=== PATIENT | female | born 1955 | race Caucasian/White ===

== ENCOUNTER 2017-02-14 13:04 | Inpatient (IN) | payer OTHER ==
[2017-02-14 13:28] VITALS: BP 166/72; PULSE 96; RESP 20; TEMP 98.1; O2SAT 97
[2017-02-14 15:20] LABS: BILIRUBIN, URINE NEG (NEG); BLOOD, URINE NEG (NEG); GLUCOSE,URINE NEG (NEG); KETONE, URINE 15 mg/dL (NEG); NITRITE,URINE NEG (NEG); PH, URINE 5.5 (5.0-8.5); URINE LEUKOCYTE ESTERASE SMALL (NEG)
[2017-02-14 15:28] LABS: URINE COLOR YELLOW (YELLW/STRAW)
[2017-02-14 15:29] LABS: SQUAMOUS EPITHELIAL CELL URINE 0-5 /hpf (0-5); WHITE BLOOD CELL CLUMPS FEW
[2017-02-14 16:10] VITALS: BP 149/72; PULSE 92; RESP 18; O2SAT 100
[2017-02-14] MEDS ORDERED: METR-1 PO (16:17)
[2017-02-14] MEDS ORDERED: CIPR250T52 PO (16:17)
[2017-02-14] MEDS ORDERED: DICY20TA10 PO (16:18)
[2017-02-14] MEDS ORDERED: SODIUM CHLOR 0.9% 1000 ML INJ 1,000 ML IV SCH (16:19)
--- NOTE | 2017-02-14 16:28 | PD ---
HPI Chief Complaint: Abdominal Pain Time Seen by Provider: 16:06 Travel History International Travel<30 days: No Contact w/Intl Traveler<30days: No Traveled to known affect area: No History of Present Illness HPI The patient was seen and examined in the presence of the nurse. She complains of abdominal pain. Duration is 2 weeks. She has nausea. She has been eating. She has decreased appetite though. She denies constipation. She had a bowel movement that was yesterday normal. She had an outpatient x-ray this morning that showed the possibility of partial obstruction. She was then referred to the emergency room. Symptoms severity is moderate. She reports that she was hospitalized at [facility] this summer with a bowel obstruction which resolved without operative intervention. [facility] Past Medical History Medical History: Denies Significant Hx Diminished Hearing: No Immunizations Current: Yes Tetanus Vaccination: > 5 Years Influenza Vaccination: No ?: Not Menopausal: Yes Past Surgical History Surgical History: No Previous Surgery Social History Alcohol Use: No Tobacco Use: Yes (02/06) Substance Use: No Allergies-Medications (Allergen,Severity, Reaction): Coded Allergies: Sulfa (Sulfonamide Antibiotics) (Verified Allergy, Unknown, N/V , 02/14/17) Reported Meds & Prescriptions Reported Meds & Active Scripts Active Reported Dicyclomine (Dicyclomine HCl) 20 Mg Tab 20 Mg PO QID Cipro (Ciprofloxacin HCl) 250 Mg Tab 750 Mg PO BID Flagyl (Metronidazole) 500 Mg Tab 500 Mg PO TID Review of Systems General / Constitutional: No: Fever Eyes: No: Visual changes HENT: No: Headaches Cardiovascular: No: Chest Pain or Discomfort Respiratory: No: Shortness of Breath Gastrointestinal: Positive: Nausea, Abdominal Pain Genitourinary: No: Dysuria Musculoskeletal: No: Pain Skin: No Rash Neurologic: No: Weakness Psychiatric: No: Depression Endocrine: No: Polydipsia Hematologic/Lymphatic: No: Easy Bruising Physical Exam Narrative GENERAL: Well-nourished, well-developed patient in no apparent distress. SKIN: Focused skin assessment reveals no rash and nodules. Skin is Warm and dry. HEAD: Atraumatic. Normocephalic. EYES: Pupils equal and round. No scleral icterus. No injection or drainage. ENT: No nasal bleeding or discharge. Mucous membranes pink and moist. NECK: Trachea midline. No JVD. CARDIOVASCULAR: Regular rate and rhythm. No murmur appreciated. RESPIRATORY: No accessory muscle use. Clear to auscultation. Breath sounds equal bilaterally. GASTROINTESTINAL: Abdomen soft, no significant tenderness or rebound or guarding , nondistended. Hepatic and splenic margins not palpable. Does have some prominent bowel sounds, nothing high-pitched MUSCULOSKELETAL: No obvious deformities. No clubbing. No cyanosis. No edema. NEUROLOGICAL: Awake and alert. No obvious cranial nerve deficits. Motor grossly within normal limits. Normal speech. PSYCHIATRIC: Appropriate mood and affect; insight and judgment normal. Data Data Last Documented VS Vital Signs Date Time Temp Pulse Resp B/P (MAP) Pulse Ox O2 Delivery O2 Flow Rate FiO2 02/14/17 18:43 82 18 145/77 (99) 99 Room Air 02/14/17 13:28 98.1 Orders Orders Urinalysis - C+S If Indicated (02/14/17 13:24) Urine Culture (02/14/17 14:49) Complete Blood Count With Diff (02/14/17 16:19) Comprehensive Metabolic Panel (02/14/17 16:19) Lipase (02/14/17 16:19) Prothrombin Time / Inr (Pt) (02/14/17 16:19) Act Partial Throm Time (Ptt) (02/14/17 16:19) Ct Abd/Pel W Iv Contrast(Rout) (02/14/17 16:19) Iv Access Insert/Monitor (02/14/17 16:19) NPO (02/14/17 16:19) Ondansetron Inj (Zofran Inj) (02/14/17 16:30) Sodium Chlor 0.9% 1000 Ml Inj (Ns 1000 M (02/14/17 16:19) Sodium Chloride 0.9% Flush (Ns Flush) (02/14/17 16:30) Oral Contrast - Adult (02/14/17 16:24) Diatrizoate Liq ( Gastroview Liq) (02/14/17 16:30) Iohexol 350 Inj (Omnipaque 350 Inj) (02/14/17 17:58) Labs Laboratory Tests Test 02/14/17 14:49 02/14/17 16:25 Urine Color YELLOW Urine Turbidity CLEAR Urine pH 5.5 Urine Specific [place] 1.008 Urine Protein NEG mg/dL Urine Glucose (UA) NEG mg/dL Urine Ketones 15 mg/dL Urine Occult Blood NEG Urine Nitrite NEG Urine Bilirubin NEG Urine Leukocyte Esterase SMALL Urine WBC 9-14 /hpf Urine WBC Clumps FEW Urine Squamous Epithelial Cells 0-5 /hpf Microscopic Urinalysis Comment CULTURE INDICATED White Blood Count 14.4 TH/MM3 Red Blood Count 3.83 MIL/MM3 Hemoglobin 10.7 GM/DL Hematocrit 32.7 % Mean Corpuscular Volume 85.3 FL Mean Corpuscular Hemoglobin 27.9 PG Mean Corpuscular Hemoglobin Concent 32.7 % Red Cell Distribution Width 15.4 % Platelet Count 534 TH/MM3 Mean Platelet Volume 7.5 FL Neutrophils (%) (Auto) 82.4 % Lymphocytes (%) (Auto) 10.9 % Monocytes (%) (Auto) 6.3 % Eosinophils (%) (Auto) 0.3 % Basophils (%) (Auto) 0.1 % Neutrophils # (Auto) 11.9 TH/MM3 Lymphocytes # (Auto) 1.6 TH/MM3 Monocytes # (Auto) 0.9 TH/MM3 Eosinophils # (Auto) 0.0 TH/MM3 Basophils # (Auto) 0.0 TH/MM3 CBC Comment DIFF FINAL Differential Comment Prothrombin Time 11.4 SEC Prothromb Time International Ratio 1.1 RATIO Activated Partial Thromboplast Time 30.9 SEC Blood Urea Nitrogen 9 MG/DL Creatinine 0.64 MG/DL Random Glucose 91 MG/DL Total Protein 7.5 GM/DL Albumin 2.7 GM/DL Calcium Level 9.0 MG/DL Alkaline Phosphatase 97 U/L Aspartate Amino Transf (AST/SGOT) 8 U/L Alanine Aminotransferase (ALT/SGPT) 10 U/L Total Bilirubin 0.4 MG/DL Sodium Level 130 MEQ/L Potassium Level 4.2 MEQ/L Chloride Level 94 MEQ/L Carbon Dioxide Level 28.0 MEQ/L Anion Gap 8 MEQ/L Estimat Glomerular Filtration Rate 95 ML/MIN Lipase 136 U/L MDM Medical Decision Making Medical Screen Exam Complete: Yes Emergency Medical Condition: Yes Medical Record Reviewed: Yes Differential Diagnosis Obstruction, ileus, colitis Narrative Course I have reviewed the patient's electronic medical record. Reviewed her outpatient x-ray from this morning that show the possibility of partial bowel obstruction IV placed CBC shows some leukocytosis of 14,000 metabolic profile shows hyponatremia of 1:30 LFT's are normal lipase is normal Coagulation studies are normal Urinalysis is normal CT of abdomen and pelvis with IV contrast shows diverticulitis with suspected abscesses. The largest is 6 x 6 cm. Given the diverticulitis with abscesses not amenable to percutaneous drainage I placed a call to Dr. Priscilla Ortiz for colorectal admission. I'm going to initiate some IV antibiotics. I gave her IV Zofran and a dose of morphine Patient will be admitted for IV antibiotics and consideration of surgical drainage Diagnosis Primary Impression: Diverticulitis of large intestine with abscess Qualified Codes: K57.20 - Diverticulitis of large intestine with perforation and abscess without bleeding Admitting Information Admitting Physician Requests: Admit Moshe Bowser MD Feb 14, 2017 16:28
[2017-02-14] MEDS ORDERED: DIATRIZOATE MEGLUM/DIATRIZOATE SOD 9 ML CUP ONE (16:30)
[2017-02-14] MEDS ORDERED: SODIUM CHLORIDE 0.9% FLUSH 10 ML FLUSH IV FLUSH PRN (16:30)
[2017-02-14] MEDS ORDERED: ONDANSETRON HCL 4 MG/2 ML VIAL IVP ONE (16:30)
[2017-02-14 16:39] LABS: AUTOMATED NEUTROPHIL # 11.9 TH/MM3 (1.8-7.7); BASOPHIL % 0.1 % (0.0-2.0); EOSINOPHIL % 0.3 % (0.0-4.0); HEMATOCRIT 32.7 % (35.0-46.0); HEMOGLOBIN 10.7 GM/DL (11.6-15.3); LYMPH % 10.9 % (9.0-44.0); LYMPHOCYTE # 1.6 TH/MM3 (1.0-4.8); MEAN CELL VOLUME 85.3 FL (80.0-100.0); MEAN CORPUSCULAR HEMOGLOBIN 27.9 PG (27.0-34.0); MEAN CORPUSCULAR HGB CONC 32.7 % (32.0-36.0); MEAN PLATELET VOLUME 7.5 FL (7.0-11.0); MONO % 6.3 % (0.0-8.0); MONOCYTE # 0.9 TH/MM3 (0-0.9); NEUT % 82.4 % (16.0-70.0); PLATELET COUNT 534 TH/MM3 (150-450); RED BLOOD COUNT 3.83 MIL/MM3 (4.00-5.30); RED CELL DISTRIBUTION WIDTH 15.4 % (11.6-17.2); WHITE BLOOD COUNT 14.4 TH/MM3 (4.0-11.0)
[2017-02-14 16:47] LABS: CHLORIDE 94 MEQ/L (98-107); SODIUM (NA) 130 MEQ/L (136-145)
[2017-02-14 16:51] LABS: ALBUMIN 2.7 GM/DL (3.4-5.0); INTERNATIONAL NORMALIZED RATIO 1.1 RATIO; LIPASE 136 U/L (73-393); PROTHROMBIN TIME - PATIENT 11.4 SEC (9.8-11.6)
[2017-02-14 16:52] LABS: BLOOD UREA NITROGEN 9 MG/DL (7-18); GLUCOSE,RANDOM 91 MG/DL (74-106)
[2017-02-14 16:55] LABS: ALT (GPT) 10 U/L (10-53); AST (GOT) 8 U/L (15-37); CREATININE 0.64 MG/DL (0.50-1.00); GLOMERULAR FILTRATION RATE 95 ML/MIN (>89)
[2017-02-14 16:56] LABS: TOTAL BILIRUBIN ADULT 0.4 MG/DL (0.2-1.0); TOTAL PROTEIN 7.5 GM/DL (6.4-8.2)
[2017-02-14 16:57] LABS: ALKALINE PHOSPHATASE 97 U/L (45-117)
[2017-02-14] MEDS ORDERED: IOHEXOL 350 MG/ML 10 ML VIAL (for RAD DIAG) IVCONTRAST ONE (17:58)
--- NOTE | 2017-02-14 18:35 | RADRPT ---
EXAM DATE/TIME: 02/14/2017 17:52 [facility] COMPARISON: No previous studies available for comparison. INDICATIONS : Abdominal pain. IV CONTRAST: 100 cc Omnipaque 350 (iohexol) IV ORAL CONTRAST: Prescribed oral contrast ingested. RADIATION DOSE: 4.44 CTDIvol (mGy) MEDICAL HISTORY : None SURGICAL HISTORY : None. ENCOUNTER: Initial ACUITY: 2 weeks PAIN SCALE: 5/10 LOCATION: Abdomen TECHNIQUE: Volumetric scanning of the abdomen and pelvis was performed. Using automated exposure control and adjustment of the mA and/or kV according to patient size, radiation dose was kept as low as reasonably achievable to obtain optimal diagnostic quality images. DICOM format image data is av ailable electronically for review and comparison. FINDINGS: CT scan of the abdomen and pelvis was performed with IV and oral contrast. The liver, spleen, pancreas, gallbladder, and kidneys are unremarkable. Within the pelvis there is a large hypo dense collection with numerous small extensions measuring at least 6.2 x 5.7 cm across. It has fluid density with a number of projections suspiciosus for a multilobulated abscess. There is an addition al abscess posterior to the mildly inflamed sigmoid colon. Although there are some areas of fluid-fi lled colon in the adjacent soft tissues I am concerned that the fluid density is actually a multilocu lated abscess. I believe I can see a normal air-filled appendix inferior and anterior to the abscess. The sigmoid colon does appear to be quite thick-walled on the reformatted images. CONCLUSION: Large multilobulated hypodense collections scattered throughout the pelvis concerning in appearance for a possible abscess. The largest central collection is 5.7 x 6.2 cm across. It is quite high in the pelvis and surrounded by bowel. I do not believe it is amenable to a percutaneous drainage. There is a smaller collection posterior to the sigmoid colon and the left posterior pelvi s. I am concerned it represents a significant diverticular abscess. Ángel Kim MD on February 14, 2017 at 18:16 Board Certified Radiologist. This report was verified electronically.
[2017-02-14 18:43] VITALS: BP 145/77; PULSE 82; RESP 18; O2SAT 99
[2017-02-14] MEDS ORDERED: MORPHINE SULFATE 2 MG/ML INJ IV PUSH ONE ×2 (19:15)
[2017-02-14] MEDS ORDERED: PIPERACIL-TAZO 3.375 GM PREMIX 50 ML IV ONE (19:15)
[2017-02-14] MEDS ORDERED: SODIUM CHLOR 0.9% 1000 ML INJ 1,000 ML IV ONE (19:30)
[2017-02-14] MEDS ORDERED: ONDANSETRON HCL 4 MG/2 ML VIAL IVP PRN (19:30)
[2017-02-14 19:54] VITALS: BP 127/77; PULSE 79; RESP 16; O2SAT 97
[2017-02-14] MEDS: MORPHINE SULFATE 2 MG/ML INJ IV PUSH PRN ×2 (21:07→23:44)
[2017-02-14 22:06] VITALS: BP 120/68
[2017-02-14] MEDS: SODIUM CHLOR 0.9% 1000 ML INJ 1,000 ML IV SCH (23:36)
[2017-02-14] MEDS: PANTOPRAZOLE SODIUM 40 MG VIAL IV PUSH SCH (23:37)
[2017-02-15] VITALS: BP 152/70; PULSE 72; RESP 16; TEMP 98.6; O2SAT 93
[2017-02-15] MEDS: MORPHINE SULFATE 2 MG/ML INJ IV PUSH PRN ×5 (02:57→21:55)
[2017-02-15] MEDS: PIPERACIL-TAZO 3.375 GM PREMIX 50 ML IV SCH ×4 (02:57→21:53)
[2017-02-15] MEDS: SODIUM CHLOR 0.9% 1000 ML INJ 1,000 ML IV SCH ×2 (05:11→17:10)
[2017-02-15 08:00] VITALS: BP 128/69; PULSE 66; RESP 17; TEMP 97.4; O2SAT 94
[2017-02-15 12:00] VITALS: BP 129/69; PULSE 62; RESP 17; TEMP 95.8; O2SAT 96
[2017-02-15] MEDS ORDERED: MIDAZOLAM HCL 2 MG/2 ML VIAL ONE (14:39)
--- NOTE | 2017-02-15 15:23 | PD.RAD ---
Post CT Procedure Prog Note Pre Procedure Diagnosis: (1) Diverticulitis of large intestine with abscess Post Procedure Diagnosis: Procedure Date: Feb 15, 2017 Supervising Radiologist: Luc Yip Proceduralist/Assist: catalina mello Estimated blood loss: none Anesthesia: Conscious Sedation Plan of Activity Patient to Unit: ROPU Patient Condition: Good See PACS Report for procedural detail/treatment Luc Yip MD Feb 15, 2017 15:22
--- NOTE | 2017-02-15 16:20 | RADRPT ---
EXAM DATE/TIME: 02/15/2017 14:46 [facility] COMPARISON: No previous studies available for comparison. INDICATIONS : Pelvic fluid SEDATION TIME: 20 minutes MEDICATION(S): 1.) 3.5 mg midazolam (Versed) IV 2.) 175 mcg fentanyl (Sublimaze) IV DEVICE(S): 1.) 10 Fr Kamran Total volume of 30 cc of cloudy, green fluid was removed. Fluid was sent for laboratory ordered studies. MEDICAL HISTORY : Diverticullitis. SURGICAL HISTORY : Abscess drain ENCOUNTER: Initial ACUITY: 1 day PAIN SCORE: 5/10 LOCATION: Abdomen PROCEDURE: 1.) Conscious sedation with continuous EKG and oximetry monitoring. PROCEDURE : 1. CT guided drainage of the pelvic abscess 2. Conscious sedation with continuous EKG and oximetry monitoring. The risks, benefits and alternatives to the procedure were explained and verbal and written consent w as obtained. Using automated exposure control and adjustment of the mA and/or kV according to patient size, radiation dose was kept as low as reasonably achievable to obtain optimal diagnostic quality i mages. The site was prepped in sterile fashion. Full sterile technique was used, including cap, ma sk, sterile gloves and gown and a large sterile sheet. Hand hygiene and 2% chlorhexidine and/or beta dine/alcohol prep was utilized per protocol for cutaneous antisepsis. The skin and subcutaneous tiss ues were infiltrated with local anesthetic solution. DICOM format image data is available electronic ally for review and comparison. Using CT guidance the prescribed site was localized. Drainage was performed using the prescribed cat heter The patient tolerated the procedure well and there were no complications. Conscious sedation was per formed with the prescribed dosages and duration as above in the presence of an independent trained ra diology nurse to assist in the monitoring of the patient. EKG and oximetry remained stable throughou t the procedure. The patient tolerated the procedure well and there were no complications. The patient was sent to pos t anesthesia recovery in stable condition. CONCLUSION: Uncomplicated CT guided drainage pelvic abscess. Luc Yip MD on February 15, 2017 at 16:17 Board Certified Radiologist. This report was verified electronically.
--- NOTE | 2017-02-15 17:04 | MH ---
cc: PITO BOWLING M.D. DATE OF ADMISSION: 02/14/2017 REASON FOR ADMISSION Diverticulitis with multiple pelvic abscesses. HISTORY OF PRESENT ILLNESS Ms. Adams is a 61-year-old female who been treated before for diverticulitis. Last was several months ago at [facility] for abscesses which required percutaneous drainage. She says she up better after the drainage was discharged home on oral antibiotics. Over the last several months she has had several episodes of recurrent attacks always treated with oral antibiotics as an outpatient. Bowel movements have remained fairly good a little bit loose but not really to the point of diarrhea. Denies any nausea or vomiting. No significant abdominal pain or distension. The patient began having about 2 weeks now of increasing nausea and abdominal distension. She had increased amounts of pain in the lower abdomen and was not restarted back on antibiotics. Outpatient x-rays showed an ileus picture with multiple loops with distended small bowel. A CAT scan was done emergency room showing a large pelvic abscess with several adjacent abscesses consistent with recurrence of her perforated diverticulitis. She actually denies any fever. No shaking chills or rigors. Denies any significant rectal bleeding or melena. Appetite has been good and she does not think she has lost major amount of weight. PAST MEDICAL HISTORY No previous surgeries. MEDICATIONS Recent antibiotics. ALLERGIES SULFA. SOCIAL HISTORY: The patient denies alcohol abuse. Has been smoking about half pack a cigarettes a day. FAMILY HISTORY: No family history of colorectal cancer. PHYSICAL EXAMINATION: IN GENERAL: Pertinent physical very pleasant thin female in no acute distress. HEAD, EYES, EARS, NOSE, AND THROAT: Unremarkable for pink dry membranes, nonicteric sclera. NECK: The neck was supple without gross adenopathy. CHEST: Relatively clear, symmetrical expanding. HEART: The heart had a regular rhythm. ABDOMEN: The abdomen was fairly large and more rounded than expected quite a bit of tympany and mild tenderness in the lower abdomen. No rebound or guarding or any real masses. EXTREMITIES: Extremities show no cyanosis or clubbing and minimal trace pedal edema. LABORATORY STUDIES White count was 14.4, hemoglobin 10.7, platelet count 534,000. Electrolytes pretty unremarkable with a normal BUN and creatinine. Normal liver functions CT scan reviewed showing a large abscess in the pelvis with several small loculated abscesses. FINDINGS Sigmoid swelling consistent with diverticulitis, were reviewed at length with the patient and with radiology. The radiologist feels he could probably try to get a catheter into the abscess for percutaneous drainage, again even though it might be somewhat difficult due to its location. The risk, benefits, alternatives were discussed at great length with the patient and she is feeling better after even 24 hours of antibiotics, so we will proceed with abscess drainage. Continue oral nutrition and hopefully avoid more emergent surgery. If we can get this to resolve with conservative approach a interval colectomy would be warranted due to the recurrent nature of her disease. Otherwise resection with a without diversion with probably be indicated. MD OREN Sims/makenna /3:50 PM /4:15 PM
[2017-02-15 17:15] LABS: AUTOMATED NEUTROPHIL # 9.2 TH/MM3 (1.8-7.7); BASOPHIL # 0.1 TH/MM3 (0-0.2); BASOPHIL % 0.9 % (0.0-2.0); EOSINOPHIL % 0.2 % (0.0-4.0); HEMATOCRIT 31.7 % (35.0-46.0); HEMOGLOBIN 10.3 GM/DL (11.6-15.3); LYMPH % 12.3 % (9.0-44.0); LYMPHOCYTE # 1.4 TH/MM3 (1.0-4.8); MEAN CELL VOLUME 88.9 FL (80.0-100.0); MEAN CORPUSCULAR HEMOGLOBIN 28.9 PG (27.0-34.0); MEAN CORPUSCULAR HGB CONC 32.5 % (32.0-36.0); MEAN PLATELET VOLUME 7.9 FL (7.0-11.0); MONO % 6.9 % (0.0-8.0); MONOCYTE # 0.8 TH/MM3 (0-0.9); NEUT % 79.7 % (16.0-70.0); PLATELET COUNT 495 TH/MM3 (150-450); RED BLOOD COUNT 3.57 MIL/MM3 (4.00-5.30); RED CELL DISTRIBUTION WIDTH 16.7 % (11.6-17.2); WHITE BLOOD COUNT 11.6 TH/MM3 (4.0-11.0)
[2017-02-15 17:39] LABS: BICARBONATE 21.1 MEQ/L (21.0-32.0); CALCIUM 8.3 MG/DL (8.5-10.1); CREATININE 0.72 MG/DL (0.50-1.00)
[2017-02-15 20:00] VITALS: BP 167/74; PULSE 58; RESP 20; TEMP 97.2; O2SAT 99
[2017-02-15] MEDS ORDERED: oxyCODONE/ACETAMINOPHEN 5 MG/325 MG TAB PO PRN (20:00)
[2017-02-15] MEDS: PANTOPRAZOLE SODIUM 40 MG VIAL IV PUSH SCH (21:55)
[2017-02-16] VITALS: BP 143/68; PULSE 63; RESP 20; TEMP 97.7; O2SAT 96
[2017-02-16] MEDS: PIPERACIL-TAZO 3.375 GM PREMIX 50 ML IV SCH ×4 (01:38→20:03)
[2017-02-16 04:00] VITALS: BP 147/70; PULSE 65; RESP 18; TEMP 98; O2SAT 95
[2017-02-16] MEDS: SODIUM CHLOR 0.9% 1000 ML INJ 1,000 ML IV SCH ×3 (04:15→19:00)
[2017-02-16] MEDS: MORPHINE SULFATE 2 MG/ML INJ IV PUSH PRN ×3 (04:37→11:35)
[2017-02-16] MEDS ORDERED: FLOR250C PO (07:49)
[2017-02-16 08:00] VITALS: BP 167/79; PULSE 56; RESP 18; TEMP 97.5; O2SAT 100
[2017-02-16] MEDS ORDERED: ACETAMINOPHEN/HYDROcodone 325 MG/5 MG TAB PO PRN (11:30)
[2017-02-16 12:00] VITALS: BP 150/72; PULSE 63; RESP 17; TEMP 98.1; O2SAT 94
[2017-02-16] MEDS: IBUPROFEN 600 MG TAB PO PRN (15:18)
[2017-02-16 16:00] VITALS: BP 159/79; PULSE 62; RESP 17; TEMP 98.3; O2SAT 96
[2017-02-16 20:00] VITALS: BP 156/71; PULSE 64; RESP 16; TEMP 96.5; O2SAT 96
[2017-02-16] MEDS: PANTOPRAZOLE SODIUM 40 MG VIAL IV PUSH SCH (20:03)
--- NOTE | 2017-02-16 22:23 | HHI.PR ---
Subjective Remarks C/R Surg afebrile, VSS UO good +flatus Objective - Vital Signs Date Time Temp Pulse Resp B/P (MAP) Pulse Ox O2 Delivery O2 Flow Rate FiO2 02/16/17 20:00 96.5 64 16 156/71 (99) 96 02/14/17 19:54 Room Air Result Diagram: 02/15/17 1644 02/15/17 1641 Objective Remarks PE alert Abd - softer, still tympany A/P Assessment and Plan Imp: better after drainage abscess OOB poss DC oif ciara PO, elective resection Jonas Haider MD Feb 16, 2017 22:23
[2017-02-17] VITALS: BP 157/76; PULSE 85; RESP 16; TEMP 98.5; O2SAT 98
[2017-02-17] MEDS: PIPERACIL-TAZO 3.375 GM PREMIX 50 ML IV SCH ×2 (02:00→08:51)
[2017-02-17 08:00] VITALS: BP 183/84; PULSE 78; RESP 18; TEMP 98.4; O2SAT 98
[2017-02-17] MEDS: IBUPROFEN 600 MG TAB PO PRN (08:51)
--- NOTE | 2017-02-17 09:09 | HHI.PR ---
Subjective Remarks C/R Surg afebrile, VSS UO good +flatus/BM Objective - Vital Signs Date Time Temp Pulse Resp B/P (MAP) Pulse Ox O2 Delivery O2 Flow Rate FiO2 02/17/17 08:00 98.4 78 18 183/84 (117) 98 02/14/17 19:54 Room Air Result Diagram: 02/15/17 1644 02/15/17 1641 Objective Remarks PE alert Abd - softer, still tympany A/P Assessment and Plan Imp: better after drainage abscess OOB poss DC oif ciara PO, elective resection rto 1 - 2 weeks Jonas Haider MD Feb 17, 2017 09:09
[2017-02-17] MEDS ORDERED: CEPHALEXIN MONOHYDRATE 500 MG CAP PO SCH (09:30)
[2017-02-17] MEDS ORDERED: CEPH500C PO (09:45)
== END 2017-02-17 11:35 | disposition home or self-care (01) | DRG 392 ==
LOC: PHED 13:04 → PHEDA 19:19 → N07B 22:33
PROVIDERS: ADMIT Colon & Rectal Surgery; ATTEND Colon & Rectal Surgery
PROC: 0W9J3ZZ Drainage of Pelvic Cavity, Percutaneous Approach (ICD-10-PCS; principal; 2017-02-15)
DX: K57.20 Diverticulitis of large intestine with perforation and abscess without bleeding (principal); E87.1 Hypo-osmolality and hyponatremia; F17.210 Nicotine dependence, cigarettes, uncomplicated; R63.0 Anorexia; N73.9 Female pelvic inflammatory disease, unspecified; D72.829 Elevated white blood cell count, unspecified
CPT/HCPCS: 49406; 74177; 80048; 80053; 81001; 82948; 83690; 85025; 85610; 85730; 87070; 87086; 87205; 96361; 96374; 96375; C1729; C1769; C9113; J2250; J2270; J2405; J2543; J3010; J7030; Q9963; Q9967

== ENCOUNTER → 2017-02-14 | Outpatient (CLI) | payer OTHER ==
[~2017-02-14] MED LIST: CEPH500C PO; CIPR250T52 PO; DICY20TA10 PO; FLOR250C PO; LIDOCAINE HCL 1% 20 ML VIAL ONE; METR-1 PO
--- NOTE | 2017-02-14 11:44 | RADRPT ---
EXAM DATE/TIME: 02/14/2017 11:27 [facility] COMPARISON: No previous studies available for comparison. INDICATIONS : Abdomen distension. MEDICAL HISTORY : Diverticulitis. SURGICAL HISTORY : None. ENCOUNTER: Initial ACUITY: 1 day PAIN SCORE: 5/10 LOCATION: Abdomen. FINDINGS: Supine and upright views of the abdomen were performed. There are some mildly dilated small bowel loo ps throughout the abdomen. Minimal air in the rectum. No air fluid levels are seen. No abnormal mas ses, calcifications, or organomegaly is seen. The visualized lower lungs are clear. No evidence of free intraperitoneal gas. The osseous structures are unremarkable. CONCLUSION: Multiple dilated small bowel loops which can be seen with partial obstruction. Luc Yip MD on February 14, 2017 at 11:41 Board Certified Radiologist. This report was verified electronically.
== END ==
LOC: HRAD 11:04
DX: R14.0 Abdominal distension (gaseous) (principal); Z87.19 Personal history of other diseases of the digestive system
CPT/HCPCS: 74019

== ENCOUNTER 2017-04-24 11:41 | Inpatient (IN) | payer OTHER ==
[~2017-04-24] VITALS: Ht 157.5 cm; Wt 48.0 kg
[~2017-04-24 11:41] MED LIST changes: -CIPR250T52 PO; -LIDOCAINE HCL 1% 20 ML VIAL ONE; -METR-1 PO
[2017-04-24] MEDS ORDERED: PROPOFOL 200 MG/20 ML AMP IV ONE (12:00)
[2017-04-24] MEDS ORDERED: ONDANSETRON HCL 4 MG/2 ML VIAL IV ONE (12:00)
[2017-04-24] MEDS ORDERED: LIDOCAINE HCL 1% PF 5 ML SYRINGE OTHER ONE (12:00)
[2017-04-24] MEDS ORDERED: PHENYLEPH/NS 1000 MCG/10 ML SYR IV ONE (12:00)
[2017-04-24] MEDS ORDERED: LABETALOL HCL 100 MG/20 ML VIAL IV ONE (12:00)
[2017-04-24] MEDS ORDERED: LACTATED RINGER'S 1000 ML INJ 2,000 ML IV ONE (12:00)
[2017-04-24] MEDS ORDERED: NORMOSOL R INJ 2,000 ML IV ONE (12:00)
[2017-04-24] MEDS ORDERED: NEOSTIGMINE 5 MG/5 ML SYRINGE IV PUSH ONE (12:00)
[2017-04-24] MEDS ORDERED: ROCURONIUM INJ 50 MG/5 ML SYRINGE IV PUSH ONE (12:00)
[2017-04-24] MEDS ORDERED: DEXAMETHASONE SOD PHOS 4 MG/ML VIAL IV ONE (12:00)
[2017-04-24] MEDS ORDERED: GLYCOPYRROLATE 1 MG/5 ML SYRINGE IV PUSH ONE (12:00)
[2017-04-24] MEDS ORDERED: CHLORHEXIDINE GLUCONATE 2 % 1 PACK (2 CLOTHS) TOPICAL PRN (12:30)
[2017-04-24] MEDS ORDERED: SODIUM CHLORID 0.9% 500 ML IV PRN (12:30)
[2017-04-24] MEDS ORDERED: METRONIDAZOLE 500 MG/100 ML ISONTONIC SOLN IV SCH (12:30)
[2017-04-24] MEDS ORDERED: LACTATED RINGER'S 1000 ML IV PRN (12:30)
[2017-04-24] MEDS ORDERED: METOPROLOL TARTRATE 25 MG TAB PO PRN (12:30)
[2017-04-24] MEDS ORDERED: DEXT 5%-NACL 0.9% 1000 ML INJ 1,000 ML IV SCH (12:30)
[2017-04-24] MEDS ORDERED: ceFAZolin 1,000 MG/NS 100 ML IV SCH ×2 (12:30)
[2017-04-24] MEDS ORDERED: POVIDONE IODINE 5% (ANTISEPSIS KIT) 4 APPLICATIONS EACH NARE PRN (12:30)
[2017-04-24] MEDS ORDERED: ALVIMOPAN 12 MG CAPSULE - On Call PO SCH (12:45)
--- NOTE | 2017-04-24 12:45 | RADRPT ---
EXAM DATE/TIME: 04/24/2017 12:21 [facility] COMPARISON: ABDOMEN FLAT & UPRIGHT, February 14, 2017, 11:27. INDICATIONS : Evaluate for pneumonia, pneumothorax, and communicable disease. Preop for intestinal resection. MEDICAL HISTORY : Diverticulitis. SURGICAL HISTORY : Abscess drainage. ENCOUNTER: Initial ACUITY: 1 day PAIN SCORE: 0/10 LOCATION: Bilateral chest FINDINGS: A single view of the chest demonstrates hyperinflation with left apical density. Lungs otherwise keyla r. Heart normal in size. Osseous structures are intact. CONCLUSION: 1. Left apical density could be first rib complex versus nodule. Outpatient CT chest recommended. 2. No evidence for pneumonia. Luc Yip MD on April 24, 2017 at 12:42 Board Certified Radiologist. This report was verified electronically.
[2017-04-24] MEDS ORDERED: NAPR220C22 PO (13:02)
[2017-04-24] MEDS ORDERED: LACTCAP8 PO (13:02)
[2017-04-24 13:30] LABS: AUTOMATED NEUTROPHIL # 8.8 TH/MM3 (1.8-7.7); BASOPHIL # 0.1 TH/MM3 (0-0.2); BASOPHIL % 0.5 % (0.0-2.0); EOSINOPHIL % 0.4 % (0.0-4.0); HEMATOCRIT 40.2 % (35.0-46.0); HEMOGLOBIN 13.4 GM/DL (11.6-15.3); LYMPH % 13.9 % (9.0-44.0); LYMPHOCYTE # 1.5 TH/MM3 (1.0-4.8); MEAN CELL VOLUME 86.2 FL (80.0-100.0); MEAN CORPUSCULAR HEMOGLOBIN 28.6 PG (27.0-34.0); MEAN CORPUSCULAR HGB CONC 33.2 % (32.0-36.0); MONO % 6.6 % (0.0-8.0); MONOCYTE # 0.7 TH/MM3 (0-0.9); NEUT % 78.6 % (16.0-70.0); PLATELET COUNT 412 TH/MM3 (150-450); RED BLOOD COUNT 4.67 MIL/MM3 (4.00-5.30); RED CELL DISTRIBUTION WIDTH 20.8 % (11.6-17.2); WHITE BLOOD COUNT 11.1 TH/MM3 (4.0-11.0)
[2017-04-24 13:39] LABS: INTERNATIONAL NORMALIZED RATIO 1.1 RATIO; PROTHROMBIN TIME - PATIENT 10.7 SEC (9.8-11.6)
--- NOTE | 2017-04-24 13:43 | PD.HP.UP ---
H&P Update Note The Pre-Admit History and Physical Examination regarding the above named patient was reviewed (including, but not limited to, vital signs, heart, lungs, co-morbid conditions), and upon re-examination it is noted that: the patient's condition has not significantly changed since the last examination. Jonas Haider MD Apr 24, 2017 13:43
[2017-04-24 13:47] LABS: ALKALINE PHOSPHATASE 100 U/L (45-117); TOTAL BILIRUBIN ADULT 0.4 MG/DL (0.2-1.0); TOTAL PROTEIN 8.2 GM/DL (6.4-8.2)
[2017-04-24 13:48] LABS: ALBUMIN 3.6 GM/DL (3.4-5.0); ALT (GPT) 15 U/L (10-53); AST (GOT) 20 U/L (15-37); BICARBONATE 27.8 MEQ/L (21.0-32.0); BLOOD UREA NITROGEN 5 MG/DL (7-18); CALCIUM 9.3 MG/DL (8.5-10.1); CHLORIDE 95 MEQ/L (98-107); CREATININE 0.79 MG/DL (0.50-1.00); GLOMERULAR FILTRATION RATE 74 ML/MIN (>89); GLUCOSE,RANDOM 119 MG/DL (74-106); SODIUM (NA) 135 MEQ/L (136-145)
--- NOTE | 2017-04-24 14:38 | EKG ---
Date Performed: 04/24/2017 Time Performed: 12:14:13 PTAGE: 62 years EKG: Sinus rhythm POSSIBLE RIGHT ATRIAL ENLARGEMENT BORDERLINE ECG NO PREVIOUS TRACING DOCTOR: Gurdeep Umaña Interpretating Date/Time 04/24/2017 14:37:29
[2017-04-24] MEDS ORDERED: MIDAZOLAM HCL 2 MG/2 ML VIAL ONE (15:13)
--- NOTE | 2017-04-24 16:02 | PD.OP ---
Operative Report Date of Surgery: Apr 24, 2017 Preoperative Diagnosis: (1) Diverticulitis Postoperative Diagnosis: (1) Diverticulitis Procedure: Cystoscopy and placement of bilateral ureteral catheters Anesthesia: General Surgeon: Darin Hopper [employer]fg Ass[employer](s): None Operation and Findings: Indication for procedures: Consulted intraoperatively to pass bilateral ureteral catheters to aid in visualization of this patient's ureters during her colorectal procedure. Urologic surgery procedures in detail: Concurrent with the colorectal surgeons, I proceeded with cystoscopy and placement of bilateral ureteral catheters as follows. Initially cystoscopic evaluation was performed utilizing the rigid cystoscope with the 30 lens and the 20 [place] sheath. Both right and left ureteral orifices were in correct anatomic position effluxing clear yellow urine. There were no bladder mucosal lesions, calculi or diverticula formation. There was no evidence of fistula formation noted. I then proceeded to pass a sensor 0.035 wire up the patient's left ureter until a small amount of resistance was met. A 5 [place] open-ended catheter was then advanced over this wire 25 cm in a cephalad direction. With the catheter in place, the wire was withdrawn and reintroduced through secondary site via the cystoscope. In similar fashion the contralateral side was accomplished. With both catheters in place the cystoscope and the wire were withdrawn and a 16 [place] 10 cc Caal catheter was placed. Both ureteral catheters were then anchored to the Caal via a connector and all 3 catheters placed to gravity drainage. This completes the urologic surgery portion of combined procedures on this patient. Darin Hopper MD Apr 24, 2017 16:02
[2017-04-24] MEDS ORDERED: DO NOT ADM ANY ANTICOAGULANT DRUGS PRN (16:42)
[2017-04-24] MEDS ORDERED: NALOXONE HCL 0.4 MG/ML AMP IV PUSH PRN (16:45)
[2017-04-24] MEDS ORDERED: ACETAMINOPHEN/HYDROcodone 325 MG/5 MG TAB PO PRN (16:45)
[2017-04-24] MEDS ORDERED: BENZOCAINE 6 MG/MENTHOL 10 MG LOZENGE BUCCAL PRN (16:45)
[2017-04-24] MEDS ORDERED: ACETAMINOPHEN 325 MG TAB PO PRN (16:45)
[2017-04-24] MEDS ORDERED: Post-op Orders (for Pharmacy) XX ONE (16:45)
[2017-04-24] MEDS ORDERED: ONDANSETRON HCL 4 MG/2 ML VIAL IV PUSH PRN (16:45)
[2017-04-24] MEDS ORDERED: ENALAPRILAT 2.5 MG/2 ML VIAL IV PUSH PRN (16:45)
[2017-04-24] MEDS ORDERED: POTASSIUM CHLOR 20 MEQ PREMIX 100 ML IV PRN (16:45)
[2017-04-24] MEDS ORDERED: POTASSIUM CHLOR 40 MEQ PREMIX 100 ML IV PRN (16:45)
[2017-04-24] MEDS ORDERED: *morphine SULFATE 10 MG/ML PERIprocedure ONLY ONE (16:54)
[2017-04-24] MEDS: ENALAPRILAT 1.25 MG/ML VIAL IV PUSH PRN (17:19)
[2017-04-24] MEDS: D5-NS + KCL 20 MEQ INJ 1,000 ML IV SCH ×2 (17:20→22:33)
[2017-04-24] MEDS: MORPHINE SULFATE 30 MG/30 ML PCA IV SCH (17:20)
[2017-04-24] MEDS ORDERED: HYDROmorphone HCL PF 2 MG/ML VIAL ONE (17:27)
[2017-04-24 20:00] VITALS: BP 160/73; PULSE 60; PULSE 62; RESP 14; TEMP 97.9; O2SAT 98
[2017-04-24 21:00] VITALS: PULSE 62
[2017-04-24] MEDS: PCA - TOTAL MG MORPHINE DELIVERED PER SHIFT SCH (21:47)
[2017-04-24] MEDS: METOCLOPRAMIDE HCL 10 MG/2 ML VIAL IVS SCH (21:48)
[2017-04-24] MEDS: KETOROLAC TROMETHAMINE 30 MG/ML (IVP) VIAL IVP PRN (21:48)
[2017-04-24 22:00] VITALS: PULSE 64
[2017-04-24] MEDS: metroNIDAZOLE 500 MG INJ 100 ML IV SCH (22:24)
[2017-04-24 22:58] LABS: BACTERIA, URINE OCC /hpf; BILIRUBIN, URINE NEG (NEG); BLOOD, URINE NEG (NEG); GLUCOSE,URINE NEG (NEG); KETONE, URINE TRACE mg/dL (NEG); NITRITE,URINE NEG (NEG); PH, URINE 6.5 (5.0-8.5); SQUAMOUS EPITHELIAL CELL URINE <1 /hpf (0-5); URINE COLOR LIGHT-YELLOW (YELLW/STRAW); URINE LEUKOCYTE ESTERASE NEG (NEG)
[2017-04-24 23:00] VITALS: PULSE 60
[2017-04-24 23:30] VITALS: BP 124/59; PULSE 68; RESP 14; TEMP 98.2; O2SAT 100
[2017-04-25] VITALS (20 sets, daily range): BP systolic 122–162; BP diastolic 61–77; PULSE 61–84; RESP 16–20; TEMP 97.9–98.6; O2SAT 94–98
[2017-04-25] MEDS: KETOROLAC TROMETHAMINE 30 MG/ML (IVP) VIAL IVP PRN ×2 (03:58→09:48)
[2017-04-25] MEDS: D5-NS + KCL 20 MEQ INJ 1,000 ML IV SCH ×4 (03:58→20:32)
[2017-04-25 04:57] LABS: AUTOMATED NEUTROPHIL # 12.8 TH/MM3 (1.8-7.7); BASOPHIL % 0.2 % (0.0-2.0); HEMATOCRIT 33.3 % (35.0-46.0); HEMOGLOBIN 10.8 GM/DL (11.6-15.3); LYMPHOCYTE # 0.7 TH/MM3 (1.0-4.8); MEAN CELL VOLUME 86.4 FL (80.0-100.0); MEAN CORPUSCULAR HEMOGLOBIN 28.1 PG (27.0-34.0); MEAN CORPUSCULAR HGB CONC 32.5 % (32.0-36.0); MEAN PLATELET VOLUME 7.4 FL (7.0-11.0); MONO % 7.1 % (0.0-8.0); NEUT % 87.7 % (16.0-70.0); PLATELET COUNT 336 TH/MM3 (150-450); RED BLOOD COUNT 3.85 MIL/MM3 (4.00-5.30); RED CELL DISTRIBUTION WIDTH 20.9 % (11.6-17.2); WHITE BLOOD COUNT 14.6 TH/MM3 (4.0-11.0)
[2017-04-25 05:40] LABS: BICARBONATE 24.2 MEQ/L (21.0-32.0); CALCIUM 7.6 MG/DL (8.5-10.1); CREATININE 0.61 MG/DL (0.50-1.00)
[2017-04-25] MEDS: metroNIDAZOLE 500 MG INJ 100 ML IV SCH ×2 (05:52→13:06)
[2017-04-25] MEDS: PCA - TOTAL MG MORPHINE DELIVERED PER SHIFT SCH ×3 (05:55→22:00)
[2017-04-25] MEDS: PANTOPRAZOLE SOD 40 MG DELAYED RELEASE TAB PO SCH (08:51)
[2017-04-25] MEDS: PANTOPRAZOLE SODIUM 40 MG VIAL IVP SCH (08:52)
[2017-04-25] MEDS: METOCLOPRAMIDE HCL 10 MG/2 ML VIAL IVS SCH ×2 (08:52→20:28)
[2017-04-25] MEDS: ALVIMOPAN 12 MG CAPSULE - Post-op dosing PO SCH ×2 (09:48→20:28)
[2017-04-25] MEDS: MORPHINE SULFATE 30 MG/30 ML PCA IV SCH (15:57)
[2017-04-25] MEDS ORDERED: ALVIMOPAN 12 MG CAPSULE PO SCH (21:00)
--- NOTE | 2017-04-25 22:34 | HHI.PR ---
Subjective Remarks C/R Surg POD #1 afebrile, VSS UO good Objective - Vital Signs Date Time Temp Pulse Resp B/P (MAP) Pulse Ox O2 Delivery O2 Flow Rate FiO2 04/25/17 20:00 97.9 71 18 122/67 (85) 94 04/25/17 07:51 Nasal Cannula 2.00 Result Diagram: 04/25/1744404/25/17 0445 Objective Remarks PE alert Abd - soft, wound dry, stoma pink A/P Assessment and Plan Imp: Stable post-op OOB decr IVF Tx to floor Jonas Haider MD Apr 25, 2017 22:34
--- NOTE | 2017-04-25 23:51 | MP ---
cc: Jonas Haider MD DATE OF OPERATION: 04/24/2017 PREOPERATIVE DIAGNOSIS: History of diverticulitis, with abscess formation. PROCEDURE PERFORMED: Exploratory laparotomy with proctosigmoidectomy and low pelvic anastomosis and diverting ileostomy, omental flap. POSTOPERATIVE DIAGNOSIS: History of perforated diverticulitis. SURGEON: Jonas Haider MD CLINICAL REVIEW SPECIALIST: Luis Gonzalez DESCRIPTION OF PROCEDURE: The patient was placed in the supine position. After adequate general anesthesia, her legs were placed in universal stirrups and supported appropriately. The abdomen and perineum were then prepped with Betadine solution and draped in the usual sterile fashion. With Dr. Gonzalez's assistance, the abdomen was opened through a midline incision. Exploration revealed a mass in the pelvis, consisting of the rectosigmoid stuck down to the posterior wall of the uterus, as well as the cul-de-sac and posterior vagina. The right tube and ovaries were also adhesed in this inflammatory mass. The left tube and ovary appeared pretty normal. The proximal colon was palpated very carefully and felt to be pretty unremarkable. The small bowel was run from ligament of Treitz down to the ileocecal valve and there were several adhesions to this inflammatory mass, which were freed up, mobilizing the bowel out of the pelvis. The liver and gallbladder were unremarkable. The stomach and duodenum were normal. The uterus appeared to be appropriate for the patient's age. Great vessels were of normal caliber. First, the sigmoid colon was mobilized medially by dividing along the white line of Toldt. The left ureteral stent was easily palpated and preserved. Dissection then proceeded up the left gutter, freeing the left colon off the retroperitoneum, taking down the splenic flexure, entering the lesser sac and mobilized the gastrocolic omentum off the transverse colon. The right retroperitoneal space was then opened and with difficulty, the right tube and ovary were freed from the inflammatory mass. There did appear to be residual abscess formation in the pelvis. The bowel dissected off the presacral fascia down toward the pelvic floor. Anteriorly, it was very difficult to free up the cul-de-sac and eventually a plane was developed, elevating the posterior vaginal wall off the rectum and getting to softer more pliable rectum in the mid rectal range. At this point, the mesorectum was able to be divided and the bowel finally divided using a contour stapling device. The pedicle for the vessels was also taken between Kellys, obtaining hemostasis with Vicryl ties. The bowel was incised to reach the rectal pouch without tension and with good blood supply, taking the left colic vessels for complete left mobilization. At the appropriate point above the inflammatory process, the marginal artery was taken and the bowel divided between a pursestring suture device and a Villanueva clamp, removing the specimen. The end of the bowel was to accept an EEA stapling anvil and this was secured with a pursestring suture. Dr. Gonzalez inserted the EEA stapling instrument transanally and under direct vision was brought up to the end of the rectal pouch and the trocar advanced. The stapler was then reassembled, the bowel aligned properly. The staple closed and fired. Upon withdrawal, 2 complete donuts of tissue was seen. Gentle insufflation did confirm an airtight anastomosis. The abdomen and pelvis were then irrigated copiously with normal saline. Any additional abscess formation was curetted clean. Due to the low nature of the anastomosis, it was felt prudent to divert the feces with a proximal ileostomy. A loop of proximal ileum was chosen and avascular plane created in the mesentery. The distal end was closed with a firing of the TA 30 stapler. A circular stab wound was created on the right side of the abdomen and the loop was brought up through the stab wound without tension, with good blood supply. Herbert-Hawley drain was placed down to the pelvis and brought up through a stab wound in the right lower quadrant, secured to the skin with a nylon suture. The omentum was then wrapped down the left gutter and wrapped around the anastomosis to separate it from the abscess and the vaginal wall. The midline incision was then closed anatomically using a running #1 PDS suture to reapproximate the midline fascia. The subcutaneous tissues were irrigated copiously and the skin closed with a row of surgical jj. Wound area washed with normal saline and dried, sterile dressing of Telfa and gauze applied. Finally, the ileostomy was matured by creating an enterotomy proximal to the staple line and the proximal limb matured in the usual Kimmy fashion by placing a row of interrupted chromic catgut sutures around the circumference. At completion, the ileostomy did appear to be patent and was very viable. Sterile ileostomy appliance was fitted over the new stoma. The patient tolerated the procedure quite well and was brought to the recovery room in stable condition. Sponge and needle counts were correct at the end of the procedure. Jonas Haider MD [facility] , 11:15 PM , 11:50 PM
[2017-04-26] VITALS (7 sets, daily range): BP systolic 118–172; BP diastolic 67–82; PULSE 72–82; RESP 18; TEMP 98.1–99.3; O2SAT 93–97
[2017-04-26] MEDS: PCA - TOTAL MG MORPHINE DELIVERED PER SHIFT SCH ×3 (06:00→22:00)
[2017-04-26 06:10] LABS: AUTOMATED NEUTROPHIL # 11.6 TH/MM3 (1.8-7.7); BASOPHIL % 0.3 % (0.0-2.0); EOSINOPHIL % 0.3 % (0.0-4.0); HEMATOCRIT 30.8 % (35.0-46.0); HEMOGLOBIN 10.1 GM/DL (11.6-15.3); LYMPH % 10.5 % (9.0-44.0); LYMPHOCYTE # 1.5 TH/MM3 (1.0-4.8); MEAN CELL VOLUME 87.3 FL (80.0-100.0); MEAN CORPUSCULAR HEMOGLOBIN 28.5 PG (27.0-34.0); MEAN CORPUSCULAR HGB CONC 32.7 % (32.0-36.0); MEAN PLATELET VOLUME 7.9 FL (7.0-11.0); MONO % 7.1 % (0.0-8.0); NEUT % 81.8 % (16.0-70.0); PLATELET COUNT 314 TH/MM3 (150-450); RED BLOOD COUNT 3.52 MIL/MM3 (4.00-5.30); RED CELL DISTRIBUTION WIDTH 20.9 % (11.6-17.2); WHITE BLOOD COUNT 14.2 TH/MM3 (4.0-11.0)
[2017-04-26] MEDS: D5-NS + KCL 20 MEQ INJ 1,000 ML IV SCH ×2 (06:33→21:11)
[2017-04-26 06:43] LABS: BICARBONATE 23.1 MEQ/L (21.0-32.0); CALCIUM 7.8 MG/DL (8.5-10.1); CREATININE 0.51 MG/DL (0.50-1.00)
--- NOTE | 2017-04-26 08:11 | HHI.PR ---
Subjective Remarks C/R Surg POD #2 afebrile, VSS UO good min from stoma Objective - Vital Signs Date Time Temp Pulse Resp B/P (MAP) Pulse Ox O2 Delivery O2 Flow Rate FiO2 04/26/17 06:00 18 04/26/17 04:00 98.1 79 163/74 (103) 93 04/25/17 07:51 Nasal Cannula 2.00 Result Diagram: 04/26/1731 04/26/1731 Objective Remarks PE alert Abd - soft, wound dry, stoma pink, BLAIR min A/P Assessment and Plan Imp: OOB decr IVF start PO Jonas Haider MD Apr 26, 2017 08:11
[2017-04-26] MEDS: PANTOPRAZOLE SODIUM 40 MG VIAL IVP SCH (09:00)
[2017-04-26] MEDS: ALVIMOPAN 12 MG CAPSULE - Post-op dosing PO SCH ×2 (09:40→21:13)
[2017-04-26] MEDS: METOCLOPRAMIDE HCL 10 MG/2 ML VIAL IVS SCH ×2 (09:40→21:14)
[2017-04-26] MEDS: PANTOPRAZOLE SOD 40 MG DELAYED RELEASE TAB PO SCH (09:41)
[2017-04-26] MEDS: FUROSEMIDE 20 MG/2 ML VIAL IV PUSH SCH ×2 (09:41→21:13)
[2017-04-26] MEDS: KETOROLAC TROMETHAMINE 30 MG/ML (IVP) VIAL IVP PRN ×2 (10:33→17:17)
[2017-04-26] MEDS: RESP: ALBUTEROL 2.5 MG/IPRATROPIUM 0.5 MG NEB (SCH) NEB ×2 (13:56→19:07)
--- NOTE | 2017-04-26 15:41 | PD.WCN.NOT ---
Wound Consult Description: Consult for Stoma per Dr Haider Communicated with: Patient Recommendation: Read educational material left at bedside for reinforcement of teaching today Write down any questions for next teaching session tomorrow, Sunday, with patients daughter from [phone] Empty pouch of effluent when 1/3-1/2 full Change wafer and pouching system every 3-5 days and PRN for leaks Additional Information: Patient seen today for teaching and ileostomy assessment Ostomy Type: Ileostomy Surgeon: Jonas Haider MD Date of Surgery: Apr 24, 2017 Complete: Starter kit (Verbal consent obtained.), Education materials Educated patient on: Stoma appearance Stoma function/output When to empty pouch When to change wafer When to seek medical attention Chewing food well Foods to avoid Staying hydrated The best time to change wafer How to obtain supplies Measuring stoma Supplies available Additional information Stoma located on right side abdomen is pink, moist with mucus present, moderately protruding, lumen noted in center and towards 6-7 o'clock not functioning at this time. There is minimal sanguinous drainage noted in pouch that was not emptied by scientific technical writer. Patient requested scientific technical writer come back tomorrow when her daughter could be present for teaching. Patient states that she just started on liquids today and will ambulate after scientific technical writer leaves. Saige Kim [facility] Apr 26, 2017 15:41
[2017-04-26] MEDS: MORPHINE SULFATE 30 MG/30 ML PCA IV SCH (18:59)
[2017-04-27] VITALS (9 sets, daily range): BP systolic 152–222; BP diastolic 70–104; PULSE 65–78; RESP 17–18; TEMP 97.4–98.7; O2SAT 93–98
[2017-04-27] MEDS: PCA - TOTAL MG MORPHINE DELIVERED PER SHIFT SCH ×2 (06:00→13:32)
[2017-04-27] MEDS: ALVIMOPAN 12 MG CAPSULE - Post-op dosing PO SCH ×2 (08:52→20:55)
[2017-04-27] MEDS: PANTOPRAZOLE SODIUM 40 MG VIAL IVP SCH (08:52)
[2017-04-27] MEDS: PANTOPRAZOLE SOD 40 MG DELAYED RELEASE TAB PO SCH (08:52)
[2017-04-27] MEDS: METOCLOPRAMIDE HCL 10 MG/2 ML VIAL IVS SCH (08:53)
[2017-04-27] MEDS: RESP: ALBUTEROL 2.5 MG/IPRATROPIUM 0.5 MG NEB (SCH) NEB ×3 (08:54→19:30)
[2017-04-27] MEDS: FUROSEMIDE 20 MG/2 ML VIAL IV PUSH SCH ×2 (08:55→20:59)
[2017-04-27] MEDS: ENALAPRILAT 1.25 MG/ML VIAL IV PUSH PRN ×2 (08:57→16:00)
[2017-04-27] MEDS: KETOROLAC TROMETHAMINE 30 MG/ML (IVP) VIAL IVP PRN ×2 (08:57→16:00)
[2017-04-27] MEDS: D5-NS + KCL 20 MEQ INJ 1,000 ML IV SCH (12:56)
--- NOTE | 2017-04-27 16:01 | PD.WCN.NOT ---
Wound Consult Description: Consult for Stoma per Dr Haider Communicated with: Patient Patient daughter at bedside JANNA Goldberg Recommendation: Read educational material left at bedside for reinforcement of teaching today Empty pouch of effluent when 1/3-1/2 full Change wafer and pouching system every 3-5 days and PRN for leaks Remove wafer using adhesive remover wipes Cleanse around stoma with water and pat dry Apply Cavilon skin barrier film and allow to dry Apply moldable wafer size 2 1/4" Attach pouch to wafer Close pouch tightly to avoid leaks Additional Information: Patient seen on for teaching and ostomy appliance change using 2 1/4" wafer and pouching system. Ostomy Type: Ileostomy Surgeon: Jonas Haider MD Date of Surgery: Apr 24, 2017 Complete: Starter kit (Sent out today via 2 day mail), Education materials, Rx (Left on chart), Other (Supplies ordered for patient to go home with at discharge) Educated patient on: Stoma appearance and function Stoma size When to seek medical attention Staying hydrated Introduce foods slowly to see how she tolerates them Empty pouch of effluent when 1/3-1/2 full Change wafer and pouching system every 3-5 days and PRN for leaks Remove wafer using adhesive remover wipes Cleanse around stoma with water and pat dry Apply Cavilon skin barrier film and allow to dry Apply moldable wafer size 2 1/4" Attach pouch to wafer Close pouch tightly to avoid leaks Additional information Supplies obtained for ostomy appliance change. Pouch was emptied of green liquid effluent and left in bathroom for I&O's and communicated with JANNA Goldberg.Wafer removed using adhesive remover wipes. Peristomal skin cleansed with water and pat dry. Stoma measured 1 1/8" round, red, moist, moderately protruding, functioning with lumen noted @5 o'clock. Mucocutaneous junction is noted with circumferential sutures otherwise unremarkable. Cavilon skin barrier film was used to protect skin and create a tacky surface for wafer application. Wafer size 2 1/4" used in today's appliance change. Pouch was attached at flange and the bottom of the pouch was closed tightly to avoid leaks. All questions were answered at this time. During removal of wafer, effluent soiled the sidney drain dressing and was removed by typewriter aligner using adhesive remover wipes. A paper towel was placed under the drain that was noted with sutures in place. JANNA Goldberg was notified of dressing removal. Saige Kim Apr 27, 2017 16:01
[2017-04-27] MEDS ORDERED: METOCLOPRAMIDE HCL 10 MG/2 ML VIAL IVS PRN (19:00)
--- NOTE | 2017-04-27 19:02 | HHI.FF ---
Face to Face Verification Diagnosis: (1) Diverticulitis Physical Therapy Order: Evaluate and Treat, Improve ambulation, Strength and gait training Home Health Nursing Order: Signs/symptoms of disease process Wound care and dressing changes Instructions: stoma teaching I have seen patient Alexia Adams on 04/27/17. My clinical findings support the need for the requested home health care services because: Deconditioned w/ increased weakness Need for psychosocial assistance Infection w/ risk of complications I certify that my clinical findings support that this patient is homebound because: Post-op weakness Need for psychosocial assistance Unable to use public transportation Jonas Haider MD Apr 27, 2017 19:02
[2017-04-27] MEDS: ACETAMINOPHEN/HYDROcodone 325 MG/5 MG TAB PO PRN (19:22)
--- NOTE | 2017-04-27 22:26 | HHI.PR ---
Subjective Remarks C/R Surg POD #3 afebrile, VSS UO good mod from stoma Objective - Vital Signs Date Time Temp Pulse Resp B/P (MAP) Pulse Ox O2 Delivery O2 Flow Rate FiO2 04/27/17 20:00 98.6 68 18 166/73 (104) 93 04/27/17 08:57 21 04/26/17 08:55 Nasal Cannula 2.00 Result Diagram: 04/26/1753004/26/1731 Objective Remarks PE alert Abd - soft, wound dry, stoma pink, BLAIR min A/P Assessment and Plan Imp: OOB decr IVF start PO, adv dc Jonas Cormier MD Apr 27, 2017 22:26
[2017-04-28] VITALS: BP 160/72; PULSE 72; RESP 17; TEMP 98; O2SAT 94
[2017-04-28] MEDS: ACETAMINOPHEN/HYDROcodone 325 MG/5 MG TAB PO PRN ×2 (07:35→12:52)
[2017-04-28] MEDS: D5-NS + KCL 20 MEQ INJ 1,000 ML IV SCH (07:35)
[2017-04-28 07:39] VITALS: O2SAT 93
[2017-04-28] MEDS: RESP: ALBUTEROL 2.5 MG/IPRATROPIUM 0.5 MG NEB (SCH) NEB ×2 (07:39→14:18)
[2017-04-28 08:00] VITALS: BP 189/63; PULSE 83; RESP 18; TEMP 98.5; O2SAT 91
[2017-04-28] MEDS: FUROSEMIDE 20 MG/2 ML VIAL IV PUSH SCH (08:12)
[2017-04-28] MEDS: PANTOPRAZOLE SODIUM 40 MG VIAL IVP SCH (08:12)
[2017-04-28] MEDS: PANTOPRAZOLE SOD 40 MG DELAYED RELEASE TAB PO SCH (08:13)
[2017-04-28] MEDS: ENALAPRILAT 1.25 MG/ML VIAL IV PUSH PRN (08:13)
[2017-04-28] MEDS: ALVIMOPAN 12 MG CAPSULE - Post-op dosing PO SCH (08:13)
[2017-04-28 12:00] VITALS: BP 187/8; PULSE 81; RESP 19; TEMP 98.4; O2SAT 93
== END 2017-04-28 15:59 | disposition home health service (06) | DRG 330 ==
LOC: HSDI 11:41 → HCPC 19:45 → N07A 04-25 16:27
PROVIDERS: ADMIT Colon & Rectal Surgery; ATTEND Colon & Rectal Surgery
PROC: 0D1B0Z4 Bypass Ileum to Cutaneous, Open Approach (ICD-10-PCS; 2017-04-24)
PROC: 0UN50ZZ Release Right Fallopian Tube, Open Approach (ICD-10-PCS; 2017-04-24)
PROC: 0UN00ZZ Release Right Ovary, Open Approach (ICD-10-PCS; 2017-04-24)
PROC: 0DNF0ZZ Release Right Large Intestine, Open Approach (ICD-10-PCS; 2017-04-24)
PROC: 0T9880Z Drainage of Bilateral Ureters with Drainage Device, Via Natural or Artificial Opening Endoscopic (ICD-10-PCS; 2017-04-24)
PROC: 0DBN0ZZ Excision of Sigmoid Colon, Open Approach (ICD-10-PCS; principal; 2017-04-24 13:57)
PROC: 0DBP0ZZ Excision of Rectum, Open Approach (ICD-10-PCS; 2017-04-24 13:57)
DX: K57.20 Diverticulitis of large intestine with perforation and abscess without bleeding (principal); I10 Essential (primary) hypertension; K66.0 Peritoneal adhesions (postprocedural) (postinfection); F17.200 Nicotine dependence, unspecified, uncomplicated
CPT/HCPCS: 71045; 80048; 80053; 81001; 85025; 85610; 85730; 86850; 86900; 86901; 88307; 88309; 93005; 94150; 94640; 94664; C1769; J0690; J1100; J1170; J1885; J1940; J2250; J2270; J2370; J2405; J2710; J2765; J3010; J3480; J7120

== ENCOUNTER → 2017-07-11 | Outpatient (CLI) | payer OTHER ==
[~2017-07-11] MED LIST changes: -CEPH500C PO; -DICY20TA10 PO; -FLOR250C PO; +HYDR-3516 PO; +LACTCAP8 PO; +NAPR220C22 PO
[2017-07-11 10:47] LABS: AUTOMATED NEUTROPHIL # 6.1 TH/MM3 (1.8-7.7); BASOPHIL # 0.1 TH/MM3 (0-0.2); BASOPHIL % 0.9 % (0.0-2.0); EOSINOPHIL # 0.1 TH/MM3 (0-0.4); EOSINOPHIL % 1.2 % (0.0-4.0); HEMATOCRIT 45.7 % (35.0-46.0); HEMOGLOBIN 15.3 GM/DL (11.6-15.3); LYMPH % 20.6 % (9.0-44.0); LYMPHOCYTE # 1.8 TH/MM3 (1.0-4.8); MEAN CELL VOLUME 91.2 FL (80.0-100.0); MEAN CORPUSCULAR HEMOGLOBIN 30.6 PG (27.0-34.0); MEAN CORPUSCULAR HGB CONC 33.5 % (32.0-36.0); MEAN PLATELET VOLUME 8.7 FL (7.0-11.0); MONO % 5.8 % (0.0-8.0); MONOCYTE # 0.5 TH/MM3 (0-0.9); NEUT % 71.5 % (16.0-70.0); PLATELET COUNT 269 TH/MM3 (150-450); PROTHROMBIN TIME - PATIENT 10.3 SEC (9.8-11.6); RED BLOOD COUNT 5.01 MIL/MM3 (4.00-5.30); RED CELL DISTRIBUTION WIDTH 20.1 % (11.6-17.2); WHITE BLOOD COUNT 8.5 TH/MM3 (4.0-11.0)
[2017-07-11 11:03] LABS: ALBUMIN 4.1 GM/DL (3.4-5.0); AST (GOT) 21 U/L (15-37); BICARBONATE 26.7 MEQ/L (21.0-32.0); BLOOD UREA NITROGEN 5 MG/DL (7-18); CALCIUM 9.4 MG/DL (8.5-10.1); CHLORIDE 98 MEQ/L (98-107); GLOMERULAR FILTRATION RATE 85 ML/MIN (>89); GLUCOSE,FASTING 81 MG/DL (74-99); SODIUM (NA) 135 MEQ/L (136-145)
[2017-07-11 11:04] LABS: ALT (GPT) 18 U/L (10-53)
[2017-07-11 11:06] LABS: ALKALINE PHOSPHATASE 95 U/L (45-117); TOTAL BILIRUBIN ADULT 0.4 MG/DL (0.2-1.0); TOTAL PROTEIN 8.5 GM/DL (6.4-8.2)
[2017-07-11 11:07] LABS: BACTERIA, URINE MOD /hpf; BILIRUBIN, URINE NEG (NEG); BLOOD, URINE NEG (NEG); GLUCOSE,URINE NEG (NEG); KETONE, URINE NEG (NEG); MUCUS URINE FEW /lpf (OCC); NITRITE,URINE NEG (NEG); PH, URINE 5.5 (5.0-8.5); SQUAMOUS EPITHELIAL CELL URINE 11 /hpf (0-5); URINE COLOR YELLOW (YELLW/STRAW); URINE LEUKOCYTE ESTERASE NEG (NEG)
== END ==
LOC: CPRE 08:58
PROVIDERS: ATTEND Colon & Rectal Surgery
DX: Z01.812 Encounter for preprocedural laboratory examination (principal); K57.32 Diverticulitis of large intestine without perforation or abscess without bleeding; B96.89 Other specified bacterial agents as the cause of diseases classified elsewhere
CPT/HCPCS: 36415; 80053; 81001; 85025; 85610; 85730; 87086

== ENCOUNTER 2017-07-18 08:04 | Inpatient (IN) | payer OTHER ==
[~2017-07-18] VITALS: Ht 157.5 cm; Wt 39.4 kg
[~2017-07-18 08:04] MED LIST changes: -HYDR-3516 PO
[2017-07-18] MEDS ORDERED: METOPROLOL TARTRATE 25 MG TAB PO PRN (08:45)
[2017-07-18] MEDS ORDERED: LACTATED RINGER'S 1000 ML IV PRN (08:45)
[2017-07-18] MEDS ORDERED: CHLORHEXIDINE GLUCONATE 2 % 1 PACK (2 CLOTHS) TOPICAL PRN (08:45)
[2017-07-18] MEDS ORDERED: METRONIDAZOLE 500 MG/100 ML ISONTONIC SOLN IV SCH (08:45)
[2017-07-18] MEDS ORDERED: SODIUM CHLORID 0.9% 500 ML IV PRN (08:45)
[2017-07-18] MEDS ORDERED: POVIDONE IODINE 5% (ANTISEPSIS KIT) 4 APPLICATIONS EACH NARE PRN (08:45)
[2017-07-18] MEDS ORDERED: ALVIMOPAN 12 MG CAPSULE - On Call PO SCH (08:45)
[2017-07-18] MEDS ORDERED: ceFAZolin 1,000 MG/NS 100 ML IV SCH ×2 (08:45)
--- NOTE | 2017-07-18 08:45 | PD.HP.UP ---
H&P Update Note The Pre-Admit History and Physical Examination regarding the above named patient was reviewed (including, but not limited to, vital signs, heart, lungs, co-morbid conditions), and upon re-examination it is noted that: the patient's condition has not significantly changed since the last examination. Jonas Haider MD Jul 18, 2017 08:45
[2017-07-18] MEDS ORDERED: DEXMEDETOMIDINE HCL 200 MCG/2 ML VIAL ONE (10:03)
[2017-07-18] MEDS ORDERED: ACETAMINOPHEN 1000 MG/100 ML 100 ML IV ONE (10:03)
[2017-07-18] MEDS ORDERED: POTASSIUM CHLOR 20 MEQ PREMIX 100 ML IV PRN (11:30)
[2017-07-18] MEDS ORDERED: NALOXONE HCL 0.4 MG/ML AMP IV PUSH PRN (11:30)
[2017-07-18] MEDS ORDERED: KETOROLAC TROMETHAMINE 30 MG/ML (IVP) VIAL IVP PRN (11:30)
[2017-07-18] MEDS ORDERED: BUPIVACAINE HCL PF 0.5% 30 ML VIAL NB SCH (11:30)
[2017-07-18] MEDS ORDERED: ENALAPRILAT 2.5 MG/2 ML VIAL IV PUSH PRN (11:30)
[2017-07-18] MEDS ORDERED: ENALAPRILAT 1.25 MG/ML VIAL IV PUSH PRN (11:30)
[2017-07-18] MEDS ORDERED: POTASSIUM CHLOR 40 MEQ PREMIX 100 ML IV PRN (11:30)
[2017-07-18] MEDS ORDERED: Post-op Orders (for Pharmacy) XX ONE (11:30)
[2017-07-18] MEDS ORDERED: ACETAMINOPHEN/HYDROcodone 325 MG/5 MG TAB PO PRN (11:30)
[2017-07-18] MEDS ORDERED: ACETAMINOPHEN 325 MG TAB PO PRN (11:30)
[2017-07-18] MEDS ORDERED: MIDAZOLAM HCL 2 MG/2 ML VIAL ONE (11:44)
[2017-07-18] MEDS ORDERED: NEOSTIGMINE 5 MG/5 ML SYRINGE IV PUSH ONE (12:00)
[2017-07-18] MEDS ORDERED: ONDANSETRON HCL 4 MG/2 ML VIAL IV ONE (12:00)
[2017-07-18] MEDS ORDERED: LIDOCAINE HCL 1% PF 5 ML SYRINGE OTHER ONE (12:00)
[2017-07-18] MEDS ORDERED: ROCURONIUM INJ 50 MG/5 ML SYRINGE IV PUSH ONE (12:00)
[2017-07-18] MEDS ORDERED: DEXAMETHASONE SOD PHOS 4 MG/ML VIAL IV ONE (12:00)
[2017-07-18] MEDS: D5-NS + KCL 20 MEQ INJ 1,000 ML IV SCH ×2 (12:00→21:08)
[2017-07-18] MEDS ORDERED: PROPOFOL 200 MG/20 ML AMP IV ONE (12:00)
[2017-07-18] MEDS ORDERED: ONDANSETRON ODT 4 MG TAB PO PRN (12:00)
[2017-07-18] MEDS ORDERED: DO NOT ADM ANY ANTICOAGULANT DRUGS PRN (12:00)
[2017-07-18] MEDS ORDERED: PHENYLEPH/NS 1000 MCG/10 ML SYR IV ONE (12:00)
[2017-07-18] MEDS ORDERED: GLYCOPYRROLATE 1 MG/5 ML SYRINGE IV PUSH ONE (12:00)
[2017-07-18] MEDS: MORPHINE SULFATE 30 MG/30 ML PCA IV SCH (12:00)
[2017-07-18] MEDS ORDERED: LACTATED RINGER'S 1000 ML INJ 1,000 ML IV ONE (12:00)
[2017-07-18] MEDS ORDERED: KETOROLAC TROMETHAMINE 30 MG/ML (IVP) VIAL IV PUSH ONE (12:00)
[2017-07-18] MEDS: PCA - TOTAL MG MORPHINE DELIVERED PER SHIFT SCH ×2 (14:00→21:57)
[2017-07-18 16:39] VITALS: BP 170/74; PULSE 63; RESP 19; TEMP 98.3; O2SAT 100
[2017-07-18] MEDS: DEXT 5%-NACL 0.9% 1000 ML INJ 1,000 ML IV SCH ×2 (16:45→23:44)
[2017-07-18] MEDS: metroNIDAZOLE 500 MG INJ 100 ML IV SCH (18:26)
[2017-07-18 19:17] VITALS: O2SAT 100
[2017-07-18 20:05] VITALS: BP_SYST 123; BP_SYST 180; BP_DIAS 58; BP_DIAS 83; PULSE 54; PULSE 75; RESP 16; TEMP 97.4; TEMP 98; O2SAT 96; O2SAT 99
[2017-07-18] MEDS: METOCLOPRAMIDE HCL 10 MG/2 ML VIAL IVS SCH (21:08)
[2017-07-19] VITALS (7 sets, daily range): BP systolic 103–178; BP diastolic 55–76; PULSE 59–69; RESP 16–18; TEMP 97.2–98.4; O2SAT 93–97
[2017-07-19] MEDS: D5-NS + KCL 20 MEQ INJ 1,000 ML IV SCH ×3 (00:49→12:46)
[2017-07-19] MEDS: metroNIDAZOLE 500 MG INJ 100 ML IV SCH ×2 (03:02→09:20)
[2017-07-19 04:39] LABS: AUTOMATED NEUTROPHIL # 11.4 TH/MM3 (1.8-7.7); BASOPHIL % 0.3 % (0.0-2.0); HEMATOCRIT 36.4 % (35.0-46.0); HEMOGLOBIN 12.5 GM/DL (11.6-15.3); LYMPH % 7.3 % (9.0-44.0); MEAN CELL VOLUME 90.6 FL (80.0-100.0); MEAN CORPUSCULAR HEMOGLOBIN 31.1 PG (27.0-34.0); MEAN CORPUSCULAR HGB CONC 34.3 % (32.0-36.0); MEAN PLATELET VOLUME 8.1 FL (7.0-11.0); MONO % 8.1 % (0.0-8.0); MONOCYTE # 1.1 TH/MM3 (0-0.9); NEUT % 84.3 % (16.0-70.0); PLATELET COUNT 197 TH/MM3 (150-450); RED BLOOD COUNT 4.02 MIL/MM3 (4.00-5.30); WHITE BLOOD COUNT 13.5 TH/MM3 (4.0-11.0)
[2017-07-19 05:11] LABS: BICARBONATE 22.4 MEQ/L (21.0-32.0); CALCIUM 7.3 MG/DL (8.5-10.1); CREATININE 0.75 MG/DL (0.50-1.00)
[2017-07-19 05:22] LABS: CALCIUM-PROTEIN CORRECTED 7.8 MG/DL (8.5-10.1); TOTAL PROTEIN 6.2 GM/DL (6.4-8.2)
[2017-07-19] MEDS: PCA - TOTAL MG MORPHINE DELIVERED PER SHIFT SCH ×3 (05:46→22:00)
[2017-07-19] MEDS: PANTOPRAZOLE SOD 40 MG DELAYED RELEASE TAB PO SCH (09:18)
[2017-07-19] MEDS: ALVIMOPAN 12 MG CAPSULE - Post-op dosing PO SCH ×2 (09:18→22:42)
[2017-07-19] MEDS: METOCLOPRAMIDE HCL 10 MG/2 ML VIAL IVS SCH ×2 (09:19→22:43)
[2017-07-19] MEDS: PANTOPRAZOLE SODIUM 40 MG VIAL IVP SCH (09:19)
[2017-07-19] MEDS: MORPHINE SULFATE 30 MG/30 ML PCA IV SCH (18:30)
[2017-07-19] MEDS: ALVIMOPAN 12 MG CAPSULE PO SCH (21:00)
[2017-07-19] MEDS: BENZOCAINE 6 MG/MENTHOL 10 MG LOZENGE BUCCAL PRN (22:42)
--- NOTE | 2017-07-19 22:58 | HHI.PR ---
Subjective Remarks C/R Surg POD #1 afebrile, VSS UO good Objective - Vital Signs Date Time Temp Pulse Resp B/P (MAP) Pulse Ox O2 Delivery O2 Flow Rate FiO2 07/19/17 22:00 18 07/19/17 19:10 98.2 69 125/69 (87) 94 07/18/17 23:28 Nasal Cannula 2.00 Result Diagram: 07/19/17 0418 07/19/17 0418 Objective Remarks PE alert Abd - soft, wound dry, min tympany A/P Assessment and Plan Imp: stable post-op OOB adv diet dc Jonas Cormier MD Jul 19, 2017 22:58
[2017-07-20] MEDS: D5-NS + KCL 20 MEQ INJ 1,000 ML IV SCH ×2 (02:41→22:57)
[2017-07-20 04:00] VITALS: BP 160/82; PULSE 77; RESP 18; TEMP 97.9; O2SAT 95
[2017-07-20] MEDS: PCA - TOTAL MG MORPHINE DELIVERED PER SHIFT SCH ×2 (06:00→14:00)
[2017-07-20 07:07] LABS: AUTOMATED NEUTROPHIL # 6.9 TH/MM3 (1.8-7.7); BASOPHIL % 0.5 % (0.0-2.0); EOSINOPHIL # 0.1 TH/MM3 (0-0.4); EOSINOPHIL % 0.6 % (0.0-4.0); HEMATOCRIT 37.3 % (35.0-46.0); HEMOGLOBIN 12.4 GM/DL (11.6-15.3); LYMPHOCYTE # 1.5 TH/MM3 (1.0-4.8); MEAN CELL VOLUME 92.5 FL (80.0-100.0); MEAN CORPUSCULAR HEMOGLOBIN 30.7 PG (27.0-34.0); MEAN CORPUSCULAR HGB CONC 33.1 % (32.0-36.0); MEAN PLATELET VOLUME 8.5 FL (7.0-11.0); MONO % 8.3 % (0.0-8.0); MONOCYTE # 0.8 TH/MM3 (0-0.9); NEUT % 74.6 % (16.0-70.0); PLATELET COUNT 183 TH/MM3 (150-450); RED BLOOD COUNT 4.03 MIL/MM3 (4.00-5.30); RED CELL DISTRIBUTION WIDTH 19.7 % (11.6-17.2); WHITE BLOOD COUNT 9.2 TH/MM3 (4.0-11.0)
[2017-07-20 08:00] VITALS: BP 160/72; PULSE 65; RESP 16; TEMP 98.9; O2SAT 92
[2017-07-20 08:04] LABS: CALCIUM 8.4 MG/DL (8.5-10.1); CREATININE 0.69 MG/DL (0.50-1.00)
--- NOTE | 2017-07-20 08:07 | MP ---
cc: Jonas Haider MD DATE OF OPERATION: 07/18/2017 PREOPERATIVE DIAGNOSIS: History of diverticular disease, tension to ileostomy. PROCEDURE PERFORMED: Exploratory laparotomy with segmental small bowel resection and closure of ileostomy. POSTOPERATIVE DIAGNOSIS: History of diverticular disease, tension to ileostomy. SURGEON: Jonas Haider MD DESCRIPTION OF PROCEDURE: The patient was placed in the supine position. After adequate general anesthesia, the abdomen was prepped with Betadine solution and dressed and draped in the usual sterile fashion. An elliptical incision was then made around the ileostomy defect in the proximal and distal limbs free from the subcutaneous tissues. The fascial attachments were released and the bowel mobilized up on top of the abdominal wound. Proximal and distal limbs were further defined and an avascular plane created proximally and distally. Distally, the bowel was divided between Luisa clamps proximally. The bowel was divided with the LUANN stapling device. The intervening mesentery taken between Batsheva's, obtaining hemostasis with Vicryl ties. Bowel continuity was then restored by firing the LUANN stapler across the antimesenteric ends of the bowel, closing the enterotomy with a TA 60 stapler. Small mesenteric defect closed with #1 Vicryl suture and a 3-0 Vicryl crotch suture was placed as well. The bowel returned to the abdominal cavity. Abdominal incision was closed anatomically in 2 layers using #1 PDS sutures to reapproximate the respective fascial layers. The subcutaneous tissues were irrigated copiously and the subcutaneous tissues closed with some interrupted Vicryl sutures and some skin jj were used to close the skin. Wound area washed with normal saline and dried, sterile dressing of Telfa and gauze applied. The patient tolerated the procedure quite well and was brought to the recovery room in stable condition. The sponge and needle counts were correct at the end of the procedure. Jonas Haider MD [facility]/ , 11:30 PM , 11:58 PM
[2017-07-20] MEDS: ALVIMOPAN 12 MG CAPSULE PO SCH ×2 (09:00→21:00)
[2017-07-20] MEDS: PANTOPRAZOLE SODIUM 40 MG VIAL IVP SCH (09:00)
[2017-07-20] MEDS: ALVIMOPAN 12 MG CAPSULE - Post-op dosing PO SCH ×2 (09:22→21:50)
[2017-07-20] MEDS: METOCLOPRAMIDE HCL 10 MG/2 ML VIAL IVS SCH (09:22)
[2017-07-20] MEDS: PANTOPRAZOLE SOD 40 MG DELAYED RELEASE TAB PO SCH (09:22)
[2017-07-20 12:00] VITALS: BP 184/81; PULSE 68; RESP 18; TEMP 98.1; O2SAT 94
[2017-07-20 16:00] VITALS: BP 199/86; PULSE 72; RESP 16; TEMP 99; O2SAT 94
[2017-07-20] MEDS ORDERED: HYDR-3516 PO (17:06)
[2017-07-20] MEDS ORDERED: METOCLOPRAMIDE HCL 10 MG/2 ML VIAL IVS PRN (17:15)
[2017-07-20 17:45] VITALS: BP 184/81
[2017-07-20 19:15] VITALS: BP 164/82; PULSE 64; RESP 18; TEMP 98.7; O2SAT 94
[2017-07-20] MEDS: ACETAMINOPHEN/HYDROcodone 325 MG/5 MG TAB PO PRN (21:52)
[2017-07-21] VITALS: BP 160/80; PULSE 66; RESP 18; TEMP 98; O2SAT 94
[2017-07-21 03:50] VITALS: BP 163/82; PULSE 67; RESP 18; TEMP 98.4; O2SAT 95
[2017-07-21 08:00] VITALS: BP 170/80; PULSE 78; RESP 17; TEMP 98.3; O2SAT 95
[2017-07-21] MEDS: PANTOPRAZOLE SODIUM 40 MG VIAL IVP SCH (08:48)
[2017-07-21] MEDS: PANTOPRAZOLE SOD 40 MG DELAYED RELEASE TAB PO SCH (08:48)
[2017-07-21] MEDS: ACETAMINOPHEN/HYDROcodone 325 MG/5 MG TAB PO PRN ×3 (08:49→17:43)
[2017-07-21] MEDS: ALVIMOPAN 12 MG CAPSULE - Post-op dosing PO SCH ×2 (08:49→20:30)
[2017-07-21] MEDS: ALVIMOPAN 12 MG CAPSULE PO SCH ×2 (08:51→20:30)
[2017-07-21] MEDS: D5-NS + KCL 20 MEQ INJ 1,000 ML IV SCH ×2 (12:17→20:26)
[2017-07-21 12:46] VITALS: BP 170/88; PULSE 70; RESP 18; TEMP 98.3; O2SAT 95
[2017-07-21 16:03] VITALS: BP 162/78; PULSE 66; RESP 17; TEMP 98.5; O2SAT 96
[2017-07-21 20:00] VITALS: BP 169/91; PULSE 57; RESP 16; TEMP 97.4; O2SAT 94
[2017-07-21] MEDS: BENZOCAINE 6 MG/MENTHOL 10 MG LOZENGE BUCCAL PRN (20:28)
[2017-07-22 00:01] VITALS: BP 148/87; PULSE 64; RESP 17; TEMP 98.2; O2SAT 94
[2017-07-22] MEDS: ALVIMOPAN 12 MG CAPSULE - Post-op dosing PO SCH (07:28)
[2017-07-22] MEDS: PANTOPRAZOLE SOD 40 MG DELAYED RELEASE TAB PO SCH (07:28)
[2017-07-22] MEDS: ACETAMINOPHEN/HYDROcodone 325 MG/5 MG TAB PO PRN (07:28)
[2017-07-22] MEDS: ALVIMOPAN 12 MG CAPSULE PO SCH (07:30)
[2017-07-22] MEDS: PANTOPRAZOLE SODIUM 40 MG VIAL IVP SCH (07:30)
[2017-07-22 08:00] VITALS: BP 158/80; PULSE 67; RESP 18; TEMP 98.4; O2SAT 95
[2017-07-22 08:28] VITALS: RESP 18
--- NOTE | 2017-07-22 09:25 | HHI.PR ---
Subjective Remarks POD#4 s/p ileostomy closure comfortable Objective Vital Signs Date Time Temp Pulse Resp B/P (MAP) Pulse Ox O2 Delivery O2 Flow Rate FiO2 07/22/17 08:28 18 07/22/17 00:01 98.2 64 17 148/87 (107) 94 07/21/17 23:27 18 07/21/17 22:20 Room Air 07/21/17 20:00 97.4 57 16 169/91 (117) 94 07/21/17 16:03 98.5 66 17 162/78 (106) 96 07/21/17 12:46 98.3 70 18 170/88 (115) 95 I/O 07/21/17 07/21/17 07/21/17 07/22/17 07/22/17 07/22/17 07:00 15:00 23:00 07:00 15:00 23:00 Intake Total 700 ml 960 ml Output Total 900 ml Balance -200 ml 960 ml Intake Oral 700 ml 960 ml Output Urine Total 900 ml # Voids 3 4 Result Diagram: 07/20/17 0431 07/20/17 0431 Objective Remarks abdomen soft, nondistended, tender wounds clean Assessment and Plan Assessment and Plan Doing well Home today Followup with Dr. Haider 7-10 days for staple removal Priscilla Ortiz MD Jul 22, 2017 09:25
== END 2017-07-22 10:24 | disposition home or self-care (01) | DRG 331 ==
LOC: HSDI 08:04 → N06A 16:26
PROVIDERS: ADMIT Colon & Rectal Surgery; ATTEND Colon & Rectal Surgery
PROC: 0DBB0ZZ Excision of Ileum, Open Approach (ICD-10-PCS; principal; 2017-07-18 10:26)
DX: Z43.2 Encounter for attention to ileostomy (principal); Z88.2 Allergy status to sulfonamides; Z72.0 Tobacco use
CPT/HCPCS: 80048; 84155; 85025; 86850; 86900; 86901; 94150; C9113; J0131; J0690; J1100; J1885; J2250; J2270; J2370; J2405; J2710; J2765; J3010; J3480; J7120